=== PATIENT | female | born 1960 | race African-American/Black ===

== ENCOUNTER 2019-04-14 09:45 | Outpatient (CLI) | payer OTHER | END 2019-04-14 10:21 | disposition home or self-care (01) | LOC: RAD 09:45 → LAB 09:45 | DX: M06.4 Inflammatory polyarthropathy (principal); E55.9 Vitamin D deficiency, unspecified; M85.89 Other specified disorders of bone density and structure, multiple sites; E88.89 Other specified metabolic disorders; M81.8 Other osteoporosis without current pathological fracture; E56.1 Deficiency of vitamin K; D64.89 Other specified anemias; D68.8 Other specified coagulation defects; N39.0 Urinary tract infection, site not specified; I49.8 Other specified cardiac arrhythmias ==

== ENCOUNTER → 2019-04-18 | Outpatient (CLI) | payer OTHER | END | disposition home or self-care (01) | LOC: NUCLEAR 12:20 | DX: M81.0 Age-related osteoporosis without current pathological fracture (principal) ==

== ENCOUNTER → 2019-04-19 | Outpatient (CLI) | payer OTHER | END | disposition home or self-care (01) | LOC: RAD 11:31 | DX: Z76.89 Persons encountering health services in other specified circumstances (principal) ==

== ENCOUNTER 2019-05-01 10:34 | Outpatient (CLI) | payer OTHER | END 2019-05-01 10:41 | disposition home or self-care (01) | LOC: LAB 10:34 | DX: A49.02 Methicillin resistant Staphylococcus aureus infection, unspecified site (principal) ==

== ENCOUNTER 2019-05-08 11:49 | Inpatient (IN) | payer OTHER ==
[~2019-05-08] VITALS: Ht 160 cm; Wt 72.6 kg
[~2019-05-08 11:49] MED LIST: DICLOFENAC SOD100 MG PO; FOLIC ACID1 MG PO; METHOTREXA25 MG/1 M5 SUBCUTANEO; ORENCIA CL125 MG/1 M SUBCUTANEO; PREDNISONE5 M1 PO
== END 2019-05-17 13:29 | disposition home or self-care (01) | DRG 483 ==
LOC: SURG 05-10 10:00 → SURH 05-15 19:54 → O/R 05-15 19:54 → SURG 05-15 23:36 → SURH 05-16 14:38
PROVIDERS: ADMIT Orthopaedic Surgery
PROC: 01N40ZZ Release Ulnar Nerve, Open Approach (ICD-10-PCS; 2019-05-15)
PROC: 01X40Z4 Transfer Ulnar Nerve to Ulnar Nerve, Open Approach (ICD-10-PCS; 2019-05-15)
PROC: 0RBL0ZZ Excision of Right Elbow Joint, Open Approach (ICD-10-PCS; 2019-05-15)
PROC: 0RRL0JZ Replacement of Right Elbow Joint with Synthetic Substitute, Open Approach (ICD-10-PCS; principal; 2019-05-15 13:45)
DX: M13.821 Other specified arthritis, right elbow (principal); G56.21 Lesion of ulnar nerve, right upper limb; Q74.0 Other congenital malformations of upper limb(s), including shoulder girdle; Z47.1 Aftercare following joint replacement surgery; M24.521 Contracture, right elbow; M24.531 Contracture, right wrist; M06.821 Other specified rheumatoid arthritis, right elbow

== ENCOUNTER → 2019-08-17 | Outpatient (CLI) | payer OTHER | END | disposition home or self-care (01) | LOC: RAD 12:23 | DX: M25.531 Pain in right wrist (principal); M25.532 Pain in left wrist; M25.522 Pain in left elbow ==

== ENCOUNTER 2019-09-15 09:56 | Outpatient (CLI) | payer OTHER | END 2019-09-15 15:00 | disposition home or self-care (01) | LOC: LAB 09:56 | DX: D64.89 Other specified anemias (principal); E88.89 Other specified metabolic disorders; D68.8 Other specified coagulation defects; N39.0 Urinary tract infection, site not specified; Z22.322 Carrier or suspected carrier of Methicillin resistant Staphylococcus aureus; I49.8 Other specified cardiac arrhythmias ==

== ENCOUNTER 2019-09-15 13:10 | Inpatient (IN) | payer OTHER ==
[~2019-09-15] VITALS: Ht 160 cm; Wt 72.6 kg
[2019-10-02] MEDS ORDERED: XARELTO10 M1 PO (09:34)
== END 2019-10-03 14:24 | disposition home or self-care (01) | DRG 483 ==
LOC: SURH 10-02 08:00 → O/R 10-02 09:07 → CIR.AMB 10-02 09:15 → EDSTATUS 10-02 09:15 → O/R 10-02 09:15 → SURH 10-02 09:15
PROVIDERS: ADMIT Orthopaedic Surgery
PROC: 0RRM0JZ Replacement of Left Elbow Joint with Synthetic Substitute, Open Approach (ICD-10-PCS; principal; 2019-10-02 08:00)
DX: M19.022 Primary osteoarthritis, left elbow (principal); M24.522 Contracture, left elbow; G56.22 Lesion of ulnar nerve, left upper limb; Q74.0 Other congenital malformations of upper limb(s), including shoulder girdle